=== PATIENT | male | born 1980 | race Caucasian/White ===

== ENCOUNTER 2018-04-23 18:56 | Inpatient (IN) | payer OTHER ==
[~2018-04-23] VITALS: Ht 177.8 cm; Wt 75.3 kg
[2018-04-23] MEDS ORDERED: ONDANSETRON 4 MG/2 ML (SDV) Z0FRAN ONE (18:57)
[2018-04-23] MEDS ORDERED: ONDANSETRON 4 MG/2 ML (SDV) Z0FRAN IVP ONE (19:00)
[2018-04-23] MEDS ORDERED: PROMETHAZINE INJ 25 MG/ML (PHENERGAN) AMP IVP ONE (19:00)
[2018-04-23 19:10] LABS: BASOPHILS % (AUTO) 0 % (0-10); EOSINOPHILS # (AUTO) 0.1 10^3/uL (0.0-0.3); EOSINOPHILS % (AUTO) 1 % (0-10); HEMATOCRIT 39 % (40-54); HEMOGLOBIN 14.5 G/DL (13.3-17.7); LYMPHOCYTES # (AUTO) 3.4 X 10^3 (1.0-4.0); LYMPHOCYTES % (AUTO) 18 % (12-44); MEAN CORPUSCULAR HEMOGLOBIN 33 PG (25-34); MEAN CORPUSCULAR HGB CONC 38 G/DL (32-36); MEAN CORPUSCULAR VOLUME 87 FL (80-99); MEAN PLATELET VOLUME 10.3 FL (7.4-10.4); MONOCYTES # (AUTO) 1.4 X 10^3 (0.0-1.0); MONOCYTES % (AUTO) 7 % (0-12); NEUTROPHILS # (AUTO) 14.2 X 10^3 (1.8-7.8); NEUTROPHILS % (AUTO) 74 % (42-75); PLATELET COUNT 396 10^3/uL (130-400); RED BLOOD COUNT 4.45 10^6/uL (4.35-5.85); RED CELL DISTRIBUTION WIDTH 13.2 % (10.0-14.5); WHITE BLOOD COUNT 19.1 10^3/uL (4.3-11.0)
[2018-04-23 19:29] LABS: ALANINE AMINOTRANSFERASE 31 U/L (0-55); ALBUMIN 4.7 GM/DL (3.2-4.5); ALKALINE PHOSPHATASE 107 U/L (40-136); BILIRUBIN,TOTAL 1.4 MG/DL (0.1-1.0); BUN/CREATININE RATIO 12; CALCIUM 9.1 MG/DL (8.5-10.1); CARBON DIOXIDE 20 MMOL/L (21-32); CHLORIDE 106 MMOL/L (98-107); CREATININE SERUM 1.21 MG/DL (0.60-1.30); GFR ESTIMATED > 60; GLUCOSE 134 MG/DL (70-105); POTASSIUM 3.5 MMOL/L (3.6-5.0); SODIUM 139 MMOL/L (135-145); TOTAL PROTEIN 7.1 GM/DL (6.4-8.2)
[2018-04-23 19:35] LABS: INR 1.1 (0.8-1.4); PARTIAL THROMBOPLASTIN TIME 26 SEC (24-35); PROTHROMBIN TIME PATIENT 14.1 SEC (12.2-14.7)
--- NOTE | 2018-04-23 19:35 | Diagnostic Imaging Report ---
INDICATION: Stroke protocol, prior lung transplant. COMPARISON: None available. TECHNIQUE: Single frontal radiograph of the chest dated April 23, 2018. FINDINGS: Port-A-Cath is present with the hub overlying the left chest with the distal tip overlying the cavoatrial junction. The cardiac silhouette is within normal limits. Central pulmonary vascular congestion is present. Mild perihilar opacities are noted. 0.9 cm ovoid nodular density is seen overlying the left costophrenic angle. The lungs otherwise appear clear. No significant pleural effusion. No pneumothorax. No acute osseous abnormality. IMPRESSION: 1. Mild central pulmonary vascular congestion with associated perihilar edema and/or pneumonitis. 2. 0.9 cm nodular density overlying the left costophrenic angle. This may relate to calcified granuloma or be external to the lungs. However, pulmonary nodule should be considered. Recommend comparison to prior imaging, if available. If no prior imaging is available, a CT of the chest would be recommended for further evaluation. Dictated by: Dictated on workstation # [id number]
[2018-04-23 19:38] LABS: FIBRIN DEGRADATION PRODUCTS < 0.27 UG/ML (0.00-0.49)
--- NOTE | 2018-04-23 19:41 | Diagnostic Imaging Report ---
PROCEDURE: CT angiography of the head and CT angiography of the neck with and without contrast. TECHNIQUE: Contiguous noncontrast images were obtained from the skull base through the vertex. After intravenous contrast administration, helical CT angiography of the neck was performed. Source data was reformatted into multiple 2D MIP projections. Delayed post contrast acquisition was also obtained. INDICATION: Nystagmus. COMPARISON: None available. FINDINGS: Noncontrast head: No hyperdense hemorrhage or space-occupying mass. No hydrocephalus or midline shift. No evidence of acute or subacute territorial infarct by CT. Basilar cisterns remain patent. No acute calvarial abnormality. There is chronic complete opacification of the bilateral ethmoid and maxillary sinuses which are small, indicative of these being chronic in nature. There is also opacification of the nasal cavities. CTA neck: Three-vessel branching pattern of the aortic arch. The bilateral common carotid arteries are widely patent. The cervical portions of the bilateral internal carotid arteries are widely patent. No stenosis of the proximal internal carotid arteries per NASCET criteria. Bilateral vertebral arteries are patent throughout the neck. No cervical lymphadenopathy. Lung apices are clear. CTA head: Distal internal carotid arteries are widely patent. The M1 and M2 divisions of the middle cerebral arteries are patent. M3 and M4 divisions are symmetric in size and number. Anterior cerebral arteries are widely patent. No saccular aneurysm within the anterior circulation. The basilar artery is widely patent and there is no aneurysm at its tip. The posterior cerebral arteries are patent centrally. Posterior communicating arteries are also patent bilaterally. IMPRESSION: 1. Noncontrast imaging is negative for large territorial infarct or intracranial hemorrhage. 2. No arterial occlusion or stenosis in the neck or head. 3. Chronic paranasal sinus disease with involvement of the nasal cavity. Sinonasal polyposis could give this appearance or chronic sinusitis. Dictated by: Dictated on workstation # [id number]
[2018-04-23 19:55] LABS: BAND NEUTROPHILS 0 %; BASOPHILS % (MANUAL) 0 %; EOSINOPHILS % (MANUAL) 1 %; LYMPHOCYTES % (MANUAL) 20 %; MONOCYTES % (MANUAL) 2 %; NEUTROPHILS % (MANUAL) 77 %; RBC MORPH NORMAL
[2018-04-23 20:21] LABS: BILIRUBIN,URINE NEGATIVE (NEGATIVE); CLARITY,URINE CLEAR; COLOR,URINE YELLOW; GLUCOSE, URINE (UA) NEGATIVE (NEGATIVE); KETONES,URINE NEGATIVE (NEGATIVE); LEUKOCYTE ESTERASE ,URINE NEGATIVE (NEGATIVE); NITRITE,URINE NEGATIVE (NEGATIVE); PH,URINE 6 (5-9); PROTEIN,URINE NEGATIVE (NEGATIVE); UROBILINOGEN,URINE NORMAL (NORMAL)
[2018-04-23 20:35] LABS: BACTERIA,URINE NEGATIVE /HPF; WBC,URINE RARE /HPF
--- NOTE | 2018-04-23 20:51 | ED Neurological Problem ---
General Chief Complaint: Neuro-Stroke Like Symptoms Stated Complaint: DIZZY,NAUSEA Nursing Triage Note: Pt assisted into ED by this RN and Viridiana CULP from car via wheelchair. 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 Pt dizzy, nauseous, and diaphoretic upon arrival to ED. Pt unable to stand without assistance and reports he is unable to open eyes due to dizziness. Pt actively vomiting while transporting to ED room. Pt reports hx cystic fibrosis and bilat lung transplant previously. LKWT 1730. Nursing Sepsis Screen: No Definite Risk Source: patient Exam Limitations: no limitations History of Present Illness Date Seen by Provider: Apr 23, 2018 Time Seen by Provider: 20:10 Initial Comments This 37-year-old gentleman presents to emergency room with sudden onset of severe vertigo with accompanying nausea and vomiting. He has persistent nystagmus as well. Last known well time was approximately 17:10. Patient had one previous episode similar but brief with lesser intensity a few weeks ago. He has a history of cystic fibrosis and bilateral lung transplant. He denies any acute illness of fever, URI symptoms, cough, etc. He denies headache or other neurologic deficits. Allergies and Home Medications Allergies Coded Allergies: No Known Drug Allergies (Unverified , 04/23/18) Patient Home Medication List Home Medication List Reviewed: Yes Review of Systems Review of Systems Constitutional: no symptoms reported Eyes: See HPI Ears, Nose, Mouth, Throat: no symptoms reported Respiratory: no symptoms reported Cardiovascular: no symptoms reported Gastrointestinal: no symptoms reported Genitourinary: no symptoms reported Musculoskeletal: no symptoms reported Skin: no symptoms reported Psychiatric/Neurological: See HPI Endocrine: No Symptoms Reported Hematologic/Lymphatic: No Symptoms Reported Past [id number] Hx Past Med/Social Hx: Reviewed and Corrections made Patient Social History Alcohol Use: Denies Use Recreational Drug Use: No Smoking Status: Never a Smoker 2nd Hand Smoke Exposure: No Recent Foreign Travel: No Contact w/Someone Who Travel: No Recent Infectious Disease Expo: No Recent Hopitalizations: No Physical Abuse: No Sexual Abuse: No Mistreated: No Fear: No Seasonal Allergies Seasonal Allergies: Yes Past Medical History Surgeries: Yes (Double lung transplant, MX: 8-10 sinus polypectomy, LAnkle repair ) Respiratory: Yes (CYSTIC FIBROSIS) Cardiac: No Neurological: Yes Neuropathy Genitourinary: No Gastrointestinal: No Endocrine: No HEENT: No Cancer: No Psychosocial: No Physical Exam Vital Signs Vital Signs - First Documented 04/23/18 18:56 Pulse 82 Resp 18 B/P (MAP) 142/95 (111) Pulse Ox 96 O2 Delivery Room Air Capillary Refill : Less Than 3 Seconds Height, Weight, BMI Height: 5'7.00" Weight: 170lbs. oz. 77.931385tv; BMI Method:Estimated General Appearance: WD/WN, moderate distress HEENT: PERRL/EOMI, normal ENT inspection, TMs normal, pharynx normal, other ( profound nystagmus even with eyes closed and at rest) Neck: normal inspection Respiratory: lungs clear, normal breath sounds, no respiratory distress, no accessory muscle use Cardiovascular: regular rate, rhythm, no edema, no murmur Peripheral Pulses: 0 Carotid (R), 0 Carotid (L), 0 Femoral (R), 0 Femoral (L), 0 Dorsalis Pedis (R), 0 Left Dors-Pedis (L), 0 Radial Pulses (R), 0 Radial Pulses (L) Gastrointestinal: normal bowel sounds, non tender, soft Extremities: normal inspection, no pedal edema Neurologic/Psychiatric: spray unit feeder II-XII nml as tested, no motor/sensory deficits, alert, normal mood/affect, oriented x 3, other (profound horizontal nystagmus) Crainal Nerves: normal hearing, normal speech, PERRL Coordination/Gait: normal finger to nose Motor/Sensory: no motor deficit, no sensory deficit Skin: normal color, warm/dry Stroke Onset of Symptoms Date of Onset of Symptoms: Apr 23, 2018 NIH Stroke Scale Assessment Select: Initial Level of Consciousness: 0=Alert (0), Level of Consciousness- Questions: 0=Answers both month/age (0), LOC Commands: 0=Performs both tasks (0) , Visual Yap: 0=No visual loss (0), Facial Movement (Facial Paresis): 0= Normal symmetrical mnt (0), Motor Function-Arms Right: 0=No drift (0), Motor Function-Arms Left: 0=No drift (0), Motor Function-Legs Right: 0=No drift (0), Motor Function-Legs Left: 0=No drift (0), Limb Ataxia: 0=Absent (0), Sensory: 0= Normal:no loss (0), Best Language: 0=No aphasia (0), Dysarthria: 0=Normal (0), Extinction & Inattention: 0=No abnormality (0), Total: 0 Stroke Thrombolytic Exclusion Age 18 or Over: Yes Intracranial Neoplasm/Aneurysm: No Progress/Results/Core Measures Results/Orders Lab Results Laboratory Tests Test 04/23/18 19:00 04/23/18 19:02 04/23/18 20:16 Range/Units White Blood Count 19.1 H 4.3-11.0 10^3/uL Red Blood Count 4.45 4.35-5.85 10^6/uL Hemoglobin 14.5 13.3-17.7 G/DL Hematocrit 39 L 40-54 % Mean Corpuscular Volume 87 80-99 FL Mean Corpuscular Hemoglobin 33 25-34 PG Mean Corpuscular Hemoglobin Concent 38 H 32-36 G/DL Red Cell Distribution Width 13.2 10.0-14.5 % Platelet Count 396 130-400 10^3/uL Mean Platelet Volume 10.3 7.4-10.4 FL Neutrophils (%) (Auto) 74 42-75 % Lymphocytes (%) (Auto) 18 12-44 % Monocytes (%) (Auto) 7 0-12 % Eosinophils (%) (Auto) 1 0-10 % Basophils (%) (Auto) 0 0-10 % Neutrophils # (Auto) 14.2 H 1.8-7.8 X 10^3 Lymphocytes # (Auto) 3.4 1.0-4.0 X 10^3 Monocytes # (Auto) 1.4 H 0.0-1.0 X 10^3 Eosinophils # (Auto) 0.1 0.0-0.3 10^3/uL Basophils # (Auto) 0.0 0.0-0.1 10^3/uL Neutrophils % (Manual) 77 % Lymphocytes % (Manual) 20 % Monocytes % (Manual) 2 % Eosinophils % (Manual) 1 % Basophils % (Manual) 0 % Band Neutrophils 0 % Blood Morphology Comment NORMAL Prothrombin Time 14.1 12.2-14.7 SEC INR Comment 1.1 0.8-1.4 Activated Partial Thromboplast Time 26 24-35 SEC D-Dimer < 0.27 0.00-0.49 UG/ML Sodium Level 139 135-145 MMOL/L Potassium Level 3.5 L 3.6-5.0 MMOL/L Chloride Level 106 98-107 MMOL/L Carbon Dioxide Level 20 L 21-32 MMOL/L Anion Gap 13 5-14 MMOL/L Blood Urea Nitrogen 15 7-18 MG/DL Creatinine 1.21 0.60-1.30 MG/DL Estimat Glomerular Filtration Rate > 60 BUN/Creatinine Ratio 12 Glucose Level 134 H 70-105 MG/DL Calcium Level 9.1 8.5-10.1 MG/DL Corrected Calcium 8.5-10.1 MG/DL Total Bilirubin 1.4 H 0.1-1.0 MG/DL Aspartate Amino Transf (AST/SGOT) 27 5-34 U/L Alanine Aminotransferase (ALT/SGPT) 31 0-55 U/L Alkaline Phosphatase 107 40-136 U/L Troponin I < 0.30 <0.30 NG/ML C-Reactive Protein High Sensitivity 0.07 0.00-0.50 MG/DL Total Protein 7.1 6.4-8.2 GM/DL Albumin 4.7 H 3.2-4.5 GM/DL Glucometer 137 H 70-110 MG/DL Urine Color YELLOW Urine Clarity CLEAR Urine pH 6 5-9 Urine Specific Adin 1.010 L 1.016-1.022 Urine Protein NEGATIVE NEGATIVE Urine Glucose (UA) NEGATIVE NEGATIVE Urine Ketones NEGATIVE NEGATIVE Urine Nitrite NEGATIVE NEGATIVE Urine Bilirubin NEGATIVE NEGATIVE Urine Urobilinogen NORMAL NORMAL MG/DL Urine Leukocyte Esterase NEGATIVE NEGATIVE Urine RBC (Auto) NEGATIVE NEGATIVE Urine RBC NONE /HPF Urine WBC RARE /HPF Urine Crystals NONE /LPF Urine Bacteria NEGATIVE /HPF Urine Casts NONE /LPF Urine Mucus NEGATIVE /LPF Urine Culture Indicated NO My Orders Orders - CABRERA WATSON MD Ondansetron Injection (Zofran Injectio (04/23/18 19:00) Promethazine Injection (Phenergan Injec (04/23/18 19:00) Cbc With Automated Diff (04/23/18:) Protime With Inr (04/23/18:) Partial Thromboplastin Time (04/23/18 19:) Comprehensive Metabolic Panel (04/23/18 19:) Fibrin Degradation Products (04/23/18:) Troponin I (04/23/18:) Ua Culture If Indicated (04/23/18:) Chest 1 View, Ap/Pa Only (04/23/18:) Ekg Tracing (04/23/18:) Accucheck Stat ONCE (04/23/18:) Saline Lock/Iv-Start (04/23/18:) Saline Lock/Iv-Start (04/23/18:) Vital Signs Stroke Patient Q15M (04/23/18:) O2 (04/23/18:) Intake & Output 06,14,22 (04/23/18:) Monitor-Rhythm Ecg Trace Only (04/23/18:) Dysphagia Screening Tool (04/23/18:) Post Thrombolytic Adminstratio (04/23/18:) Lipid Panel (04/24/18 06:00) Ct Angio Head/Neck (04/23/18:) Manual Differential (04/23/18 19:) Hs C Reactive Protein (04/23/18 19:44) Medications Given in ED Current Medications Medications Dose Ordered Sig/Josh Route Start Time Stop Time Status Last Admin Dose Admin Ondansetron HCl 8 mg ONCE ONCE IVP 04/23/18 19:00 04/23/18 19:02 DC 04/23/18 19:05 8 MG Promethazine HCl 25 mg ONCE ONCE IVP 04/23/18 19:00 04/23/18 19:02 DC 04/23/18 19:10 25 MG Vital Signs/I&O 04/23/18 18:56 Pulse 82 Resp 18 B/P (MAP) 142/95 (111) Pulse Ox 96 O2 Delivery Room Air Blood Pressure Mean: 111 FSBG Bedside Testing Finger Stick Blood Glucose: 137 Blood Glucose Action Taken: dr notified Progress Progress Note #1: Progress Note 19:30 - Stroke activation was paged. Patient was taken to CT for angiogram of the head and neck. Case was discussed with Dr. Hoffmann, stroke neurologist at [facility]. He advises against TPA for the time being until CT angiogram report is known. Patient was treated with Zofran and Phenergan. This did calm the nausea and vomiting but no nystagmus persisted. 19:57 - CT imaging revealed no evidence for hemorrhage or vascular occlusion. Case was again discussed with Dr. Hoffmann. He recommended discussing TPA with the patient but his opinion is that the benefits do not outweigh the risks in this case. He did advise treating for labyrinthitis and admitting for observation with MRI in the morning. Progress Note #2: Time: 19:[address] angiogram was negative. There was some evidence of sinusitis as an incidental finding. Case was again discussed with Dr. Hoffmann. He advised against TPA. He recommended treating for labyrinthitis, admitting, and obtaining an MRI in the morning. TPA was discussed with patient. Risks and benefits of TPA were reviewed. Progress Note #3: Time: 20:10 Progress Note TPA was discussed with patient. He was informed it was not recommended per the stroke neurologist but was an option. Patient declines TPA. Nystagmus is nearly resolved at this time. Plan according to discussion with Dr. Hoffmann was discussed with the patient who is agreeable to admission. Imaging was clotted to [facility] for his review. Initial ECG Impression Date: Apr 23, 2018 Initial ECG Impression Time: 19:30 Initial ECG Rate: 72 Initial ECG Rhythm: Normal Sinus Initial ECG Intervals: Normal Initial ECG Impression: Normal Diagnostic Imaging Diagonstic Imaging: CT Plain Films/CT/US/NM/MRI: other (angiogram head and neck) Comments CT angiogram head and neck viewed by me and report reviewed. See report below: NAME: TIERNEY SRINIVASAN [facility] REC#: [id number] PT STATUS: REG ER : 1980 PHYSICIAN: CABRERA WATSON MD ADMIT DATE: 04/23/18/ER Signed Date of Exam: 04/23/18 CT ANGIO HEAD/NECK PROCEDURE: CT angiography of the head and CT angiography of the neck with and without contrast. TECHNIQUE: Contiguous noncontrast images were obtained from the skull base through the vertex. After intravenous contrast administration, helical CT angiography of the neck was performed. Source data was reformatted into multiple 2D MIP projections. Delayed post contrast acquisition was also obtained. INDICATION: Nystagmus. COMPARISON: None available. FINDINGS: Noncontrast head: No hyperdense hemorrhage or space-occupying mass. No hydrocephalus or midline shift. No evidence of acute or subacute territorial infarct by CT. Basilar cisterns remain patent. No acute calvarial abnormality. There is chronic complete opacification of the bilateral ethmoid and maxillary sinuses which are small, indicative of these being chronic in nature. There is also opacification of the nasal cavities. CTA neck: Three-vessel branching pattern of the aortic arch. The bilateral common carotid arteries are widely patent. The cervical portions of the bilateral internal carotid arteries are widely patent. No stenosis of the proximal internal carotid arteries per NASCET criteria. Bilateral vertebral arteries are patent throughout the neck. No cervical lymphadenopathy. Lung apices are clear. CTA head: Distal internal carotid arteries are widely patent. The M1 and M2 divisions of the middle cerebral arteries are patent. M3 and M4 divisions are symmetric in size and number. Anterior cerebral arteries are widely patent. No saccular aneurysm within the anterior circulation. The basilar artery is widely patent and there is no aneurysm at its tip. The posterior cerebral arteries are patent centrally. Posterior communicating arteries are also patent bilaterally. IMPRESSION: 1. Noncontrast imaging is negative for large territorial infarct or intracranial hemorrhage. 2. No arterial occlusion or stenosis in the neck or head. 3. Chronic paranasal sinus disease with involvement of the nasal cavity. Sinonasal polyposis could give this appearance or chronic sinusitis. Dictated by: Dictated on workstation # [id number] Dict: 04/23/181928 Trans: 04/23/181945 Interpreted by: LUCY BRUCE MD Electronically signed by: LUCY BRUCE MD 04/23/181945 Diagonstic Imaging: Xray Plain Films/CT/US/NM/MRI: chest Comments Chest x-ray viewed by me and report reviewed. See report below: NAME: TIERNEY SRINIVASAN Courtney [facility] REC#: [id number] PT STATUS: REG ER : 1980 PHYSICIAN: CABRERA WATSON MD ADMIT DATE: 04/23/18/ER Signed Date of Exam: 04/23/18 CHEST 1 VIEW, AP/PA ONLY INDICATION: Stroke protocol, prior lung transplant. COMPARISON: None available. TECHNIQUE: Single frontal radiograph of the chest dated April 23, 2018. FINDINGS: Port-A-Cath is present with the hub overlying the left chest with the distal tip overlying the cavoatrial junction. The cardiac silhouette is within normal limits. Central pulmonary vascular congestion is present. Mild perihilar opacities are noted. 0.9 cm ovoid nodular density is seen overlying the left costophrenic angle. The lungs otherwise appear clear. No significant pleural effusion. No pneumothorax. No acute osseous abnormality. IMPRESSION: 1. Mild central pulmonary vascular congestion with associated perihilar edema and/or pneumonitis. 2. 0.9 cm nodular density overlying the left costophrenic angle. This may relate to calcified granuloma or be external to the lungs. However, pulmonary nodule should be considered. Recommend comparison to prior imaging, if available. If no prior imaging is available, a CT of the chest would be recommended for further evaluation. Dictated by: Dictated on workstation # [id number] Dict: 04/23/181926 Trans: 04/23/181945 Interpreted by: JAZZY LACKEY MD Electronically signed by: JAZZY LACKEY MD 04/23/181945 Departure Communication (Admissions) Time/Spoke to Admitting Phy: 20:40 Dr. Daniels Impression Primary Impression: Vertigo Additional Impressions: Nystagmus Sinusitis Qualified Codes: J32.9 - Chronic sinusitis, unspecified Leukocytosis Qualified Codes: D72.829 - Elevated white blood cell count, unspecified Nausea and vomiting Qualified Codes: R11.2 - Nausea with vomiting, unspecified Disposition: 09 ADMITTED INPATIENT Condition: Improved Admissions Decision to Admit Reason: Admit from ER (General) Decision to Admit/Date: Apr 23, 2018 Time/Decision to Admit Time: 19:25 CABRERA WATSON MD Apr 23, 2018 20:51
[2018-04-23 22:13] VITALS: BP 146/94
[2018-04-23] MEDS ORDERED: NS IV 1000 ML 1,000 ML ONE (22:38)
[2018-04-23] MEDS: NS IV 1000 ML 1,000 ML IV SCH (22:49)
[2018-04-23] MEDS: predniSONE 20 MG TAB PO SCH (23:03)
[2018-04-23] MEDS: cefTRIAXone 1 GM/NS 50 ML IVPB IV SCH ×2 (23:06)
[2018-04-23 23:45] VITALS: BP 127/62
[2018-04-24] VITALS (8 sets, daily range): BP systolic 116–134; BP diastolic 59–75
[2018-04-24] MEDS: ONDANSETRON 4 MG/2 ML (SDV) Z0FRAN IV PRN ×4 (03:55→20:46)
[2018-04-24] MEDS: PROMETHAZINE INJ 25 MG/ML (PHENERGAN) AMP IV PRN ×2 (05:14→15:17)
[2018-04-24] MEDS: NS IV 1000 ML 1,000 ML IV SCH ×3 (05:17→20:29)
[2018-04-24 06:18] LABS: BASOPHILS % (AUTO) 0 % (0-10); EOSINOPHILS # (AUTO) 0.1 10^3/uL (0.0-0.3); EOSINOPHILS % (AUTO) 2 % (0-10); HEMATOCRIT 35 % (40-54); HEMOGLOBIN 12.8 G/DL (13.3-17.7); LYMPHOCYTES # (AUTO) 0.9 X 10^3 (1.0-4.0); LYMPHOCYTES % (AUTO) 13 % (12-44); MEAN CORPUSCULAR HEMOGLOBIN 32 PG (25-34); MEAN CORPUSCULAR HGB CONC 37 G/DL (32-36); MEAN CORPUSCULAR VOLUME 87 FL (80-99); MEAN PLATELET VOLUME 10.2 FL (7.4-10.4); MONOCYTES # (AUTO) 0.5 X 10^3 (0.0-1.0); MONOCYTES % (AUTO) 7 % (0-12); NEUTROPHILS % (AUTO) 79 % (42-75); PLATELET COUNT 229 10^3/uL (130-400); RED BLOOD COUNT 4.02 10^6/uL (4.35-5.85); RED CELL DISTRIBUTION WIDTH 13.2 % (10.0-14.5); WHITE BLOOD COUNT 7.5 10^3/uL (4.3-11.0)
[2018-04-24] MEDS ORDERED: URSO300C3 PO (06:32)
[2018-04-24] MEDS ORDERED: PRED5TAB PO (06:32)
[2018-04-24] MEDS ORDERED: GABA600T2 PO ×2 (06:32→09:49)
[2018-04-24 06:37] LABS: BUN/CREATININE RATIO 13; CALCIUM 8.4 MG/DL (8.5-10.1); CARBON DIOXIDE 21 MMOL/L (21-32); CHLORIDE 106 MMOL/L (98-107); CHOLESTEROL 106 MG/DL (< 200); CREATININE SERUM 1.06 MG/DL (0.60-1.30); GFR ESTIMATED > 60; GLUCOSE 144 MG/DL (70-105); HDL CHOLESTEROL 30 MG/DL (40-60); POTASSIUM 3.6 MMOL/L (3.6-5.0); SODIUM 137 MMOL/L (135-145); TRIGLYCERIDES 86 MG/DL (<150); VLDL CHOLESTEROL 17 MG/DL (5-40)
[2018-04-24] MEDS ORDERED: FLU QUADRIvalent (5+ YOA) 2018-2019 (AFLURIA) 0.5 ML IM ONE (07:15)
--- NOTE | 2018-04-24 09:07 | Diagnostic Imaging Report ---
PROCEDURE: MR imaging of the brain and internal auditory canals without contrast. TECHNIQUE: Multiplanar, multisequence MR imaging of the brain was performed without contrast. Dedicated sequence of the internal auditory canals was also obtained and provided. DATE: April 24, 2018. COMPARISON: CT angiography head and neck April 23, 2018. HISTORY: 37-year-old male, vertigo, nystagmus. Dyspnea and nausea. FINDINGS: There is no restricted diffusion. There are no areas of abnormal intracranial susceptibility. The ventricles and CSF spaces are normal in size and configuration for patient age. There is no abnormal extra axial fluid collection. There is no acute intracranial hemorrhage. There is no mass effect or midline shift. There are small foci of T2 and FLAIR hyperintense signal in the bilateral frontal lobe subcortical white matter perhaps best illustrated on axial FLAIR sequence image 20 and adjacent sequential images. There are no additional areas of abnormal intracranial signal. The visualized portions of the fifth, seventh, and eighth cranial nerves are unremarkable in appearance. The middle ears appear unremarkable in appearance. There is no identified vascular loop entering within either internal auditory canal. There is extensive nonspecific paranasal opacification. The mastoid air cells are well aerated bilaterally. IMPRESSION: 1. No evidence of acute infarct. 2. Several nonspecific foci of T2 and FLAIR hyperintense signal in the bilateral frontal lobe subcortical white matter. Differential diagnostic considerations would include vasculitis, early changes of chronic small vessel ischemic disease, demyelinating etiology, and less likely atypical infection. These do not demonstrate diffusion restriction to specifically suggest active demyelinating lesion. 3. Nonspecific extensive paranasal sinus opacification. 4. Unremarkable appearance of the internal auditory canals. Dictated by: Dictated on workstation # [id number]
[2018-04-24] MEDS ORDERED: SULF1TAB35 PO (09:38)
[2018-04-24] MEDS ORDERED: CALC600T12 PO (09:38)
[2018-04-24] MEDS ORDERED: LIPA1CAP4 PO (09:38)
[2018-04-24] MEDS ORDERED: ACYC200C PO (09:38)
[2018-04-24] MEDS ORDERED: PYRI100T2 PO (09:38)
[2018-04-24] MEDS ORDERED: PRED10TA22 PO (09:38)
[2018-04-24] MEDS ORDERED: CYAN10006 PO (09:38)
[2018-04-24] MEDS ORDERED: MULT-406 PO (09:38)
[2018-04-24] MEDS ORDERED: PRD10T PO (09:42)
[2018-04-24] MEDS ORDERED: TACR1CAP8 PO (09:42)
[2018-04-24] MEDS ORDERED: MYCO500T34 PO (09:42)
[2018-04-24] MEDS: MECLIZINE 25 MG (ANTIVERT) TAB PO PRN (11:46)
[2018-04-24] MEDS ORDERED: PATIENT MAY USE OWN MEDS, ALL MC SCH (12:00)
[2018-04-24] MEDS ORDERED: SCOPOLAMINE 1.5 MG (TRANSDERM-SCOP) PATCH TOP SCH (12:00)
--- NOTE | 2018-04-24 12:01 | History & Physical-Hospitalist ---
History of Present Illness HPI/Chief Complaint Pt is a 37yoCM with a PMH of CF s/p bilateral lung transplant in 2008 who presented to the ER with CC of acute onset dizziness, nausea, and vomiting. He states that his symptoms started acutely at around 5pm yesterday when he was taking pictures. He describes his dizziness as "the room spinning like he just got off a [id number]." In the ER his symptoms improved with Zofran and Phenergan but they started again early this morning. He was activated as a code stroke and his CTA was negative for acute infarct or thrombus. His case was discussed with [facility] who felt he was not a candidate for TPA and his symptoms were more consistent with acute vestibular neuritis and he was admitted for observation and MRI. MRI this morning is negative for acute infarct though his symptoms are persistent and his nystagmus has returned. Source: patient, family Date Seen 04/24/18 Time Seen by a Provider: 11:52 Attending Physician Edmundo Daniels MD PCP No,Local Physician Referring Physician Date of Admission Apr 23, 2018 at 8:48 pm Home Medications & Allergies Home Medications Reviewed patient Home Medication Reconciliation performed by pharmacy medication reconciliations wheel alignment technician and/or nursing. Patients Allergies have been reviewed. Allergies Allergies Coded Allergies No Known Drug Allergies (Gofoqptstj24/8/18) Past Eubvwrk-Ecqixp-Ciqksj Hx Past Med/Social Hx: Reviewed Nursing Past Med/Soc Hx, Reviewed and Corrections made Patient Social History Alcohol Use: Denies Use Recreational Drug Use: No Smoking Status: Never a Smoker 2nd Hand Smoke Exposure: No Physical Abuse Screen: No Sexual Abuse: No Recent Foreign Travel: No Contact w/other who traveled: No Recent Hopitalizations: No Recent Infectious Disease Expo: No Seasonal Allergies Seasonal Allergies: No Past Medical History bilateral lung transplant cystic fibrosis Neurological: Neuropathy Family History Reviewed Nursing Family Hx Colitis 19 MOTHER Cystic fibrosis G8 BROTHER FH: rheumatoid arthritis 19 FATHER Review of Systems Constitutional: No chills; dizziness; No fever EENTM: No nose congestion, No throat pain Respiratory: No cough, No dyspnea on exertion, No short of breath Cardiovascular: No chest pain, No edema, No palpitations Gastrointestinal: No abdominal pain, No constipation, No diarrhea; nausea, vomiting Genitourinary: No dysuria, No frequency Musculoskeletal: No joint pain, No muscle pain Skin: No lesions, No rash Psychiatric/Neurological: Denies Headache, Denies Numbness, Denies Tingling Physical Exam Physical Exam Vital Signs Vital Signs - First Documented 04/23/18 04/23/18 18:56 22:05 Temp 98.6 Pulse 82 Resp 18 B/P (MAP) 142/95 (111) Pulse Ox 96 O2 Delivery Room Air Capillary Refill : Less Than 3 Seconds Height, Weight, BMI Height: 5'10.00" Weight: 166lbs. 0.0oz. [id number]; 23.8 BMI Method:Estimated General Appearance: No Apparent Distress, WD/WN HEENT: Moist Mucous Membranes, Other (persistent horizontal nystagmus bilaterally) Neck: Non Tender, Supple Respiratory: Lungs Clear, No Respiratory Distress Cardiovascular: Regular Rate, Rhythm, No Murmur Gastrointestinal: Normal Bowel Sounds, Non Tender, Soft Extremity: Normal Capillary Refill, No Calf Tenderness Neurologic/Psychiatric: Alert, Oriented x3, No Motor/Sensory Deficits, Normal Mood/Affect; No Aphasia, No Facial Droop, No Motor Weakness Skin: Normal Color, Warm/Dry Results Results/Procedures Labs Patient resulted labs reviewed. Imaging: Reviewed Imaging Films Assessment/Plan Admission Diagnosis Acute Vestibular Neuritis Admission Status: Inpatient Order (span 2 midnights) Reason for Inpatient Admission: Will likely take more than two days for stabilization Diagnosis/Problems Diagnosis/Problems (1) Acute vestibular neuritis Status: Acute Assessment & Plan: Concern for stroke on arrival but CT head and MRI head negative for acute infarct Likely acute vestibular neuritis Continue supportive care Advised nurse to given Meclizine to help with vertigo Added valium and scopolamine Qualifiers: Laterality: bilateral Qualified Codes: H81.23 - Vestibular neuronitis, bilateral (2) Cystic fibrosis Assessment & Plan: s/p bilateral lung transplant Will check Tacrolimus level Continue on Acyclovir and anti rejection medications (3) Leukocytosis Status: Acute Assessment & Plan: Now resolved Likely reactive from vomiting Qualifiers: Leukocytosis type: unspecified Qualified Codes: D72.829 - Elevated white blood cell count, unspecified Clinical Quality Measures DVT/VTE Risk/Contraindication: RFS Level Per Nursing on Admit: 0=No Risk/No VTE PPX Stroke: Date of last known well: Apr 23, 2018 MAURA MAYNARD MD Apr 24, 2018 12:01
[2018-04-24] MEDS: DIAZEPAM 2 MG (VALIUM) TAB PO PRN ×2 (12:49→17:39)
[2018-04-24] MEDS: ACYCLOVIR 400 MG TABLET (ZOVIRAX) PO SCH ×6 (14:59→20:56)
[2018-04-24] MEDS: predniSONE 20 MG TAB PO SCH (15:00)
[2018-04-24] MEDS: cefTRIAXone 1 GM/NS 50 ML IVPB IV SCH ×2 (23:21)
[2018-04-25] MEDS: NS IV 1000 ML 1,000 ML IV SCH ×4 (03:28→22:55)
[2018-04-25] MEDS: DIAZEPAM 2 MG (VALIUM) TAB PO PRN (03:30)
[2018-04-25 04:21] VITALS: BP 133/83
[2018-04-25] MEDS: predniSONE 20 MG TAB PO SCH (06:02)
[2018-04-25] MEDS: ACYCLOVIR 400 MG TABLET (ZOVIRAX) PO SCH ×2 (06:03→09:56)
[2018-04-25 06:21] LABS: BASOPHILS % (AUTO) 0 % (0-10); EOSINOPHILS # (AUTO) 0.3 10^3/uL (0.0-0.3); EOSINOPHILS % (AUTO) 4 % (0-10); HEMATOCRIT 33 % (40-54); HEMOGLOBIN 12.2 G/DL (13.3-17.7); LYMPHOCYTES # (AUTO) 1.5 X 10^3 (1.0-4.0); LYMPHOCYTES % (AUTO) 22 % (12-44); MEAN CORPUSCULAR HEMOGLOBIN 33 PG (25-34); MEAN CORPUSCULAR HGB CONC 37 G/DL (32-36); MEAN CORPUSCULAR VOLUME 90 FL (80-99); MEAN PLATELET VOLUME 10.1 FL (7.4-10.4); MONOCYTES # (AUTO) 0.5 X 10^3 (0.0-1.0); MONOCYTES % (AUTO) 8 % (0-12); NEUTROPHILS # (AUTO) 4.3 X 10^3 (1.8-7.8); NEUTROPHILS % (AUTO) 66 % (42-75); PLATELET COUNT 193 10^3/uL (130-400); RED BLOOD COUNT 3.68 10^6/uL (4.35-5.85); RED CELL DISTRIBUTION WIDTH 13.2 % (10.0-14.5); WHITE BLOOD COUNT 6.5 10^3/uL (4.3-11.0)
[2018-04-25 06:46] LABS: BUN/CREATININE RATIO 12; CALCIUM 8.2 MG/DL (8.5-10.1); CARBON DIOXIDE 21 MMOL/L (21-32); CHLORIDE 112 MMOL/L (98-107); CREATININE SERUM 1.02 MG/DL (0.60-1.30); GFR ESTIMATED > 60; GLUCOSE 103 MG/DL (70-105); POTASSIUM 4.1 MMOL/L (3.6-5.0); SODIUM 140 MMOL/L (135-145)
[2018-04-25 07:43] VITALS: BP 128/80
[2018-04-25] MEDS: ONDANSETRON 4 MG/2 ML (SDV) Z0FRAN IV PRN ×2 (10:31→21:15)
[2018-04-25] MEDS: MECLIZINE 25 MG (ANTIVERT) TAB PO PRN (10:34)
[2018-04-25 12:00] VITALS: BP 141/91
[2018-04-25] MEDS ORDERED: NON-FORMULARY MEDICATION 1 EA EA (Sulfamethoxazole/Trimethoprim (Bactrim Ds Tablet) 1 TAB) PO SCH (12:00)
[2018-04-25] MEDS ORDERED: LIPASE/AMYLASE/PROTEASE (PANCRELIPASE) 5,000 UNITS CAP PO PRN (12:30)
[2018-04-25] MEDS ORDERED: TRIM/SULFAMETH 160/800 (SEPTRA DS) TAB PO SCH (12:30)
[2018-04-25] MEDS: GABAPENTIN 300 MG (NEURONTIN) CAP PO SCH (14:59)
[2018-04-25] MEDS: MYCOPHENOLATE 500 MG PO SCH ×2 (15:00→21:16)
[2018-04-25] MEDS: PYRIDOXINE (VITAMIN B-6) 50 MG TABLET PO SCH (15:00)
--- NOTE | 2018-04-25 15:30 | Progress Note-Hospitalist ---
Progress Note Progress Notes/Assess & Plan Date Seen 04/25/18 Time Seen by Provider: 15:25 Assessment & Plan The patient reports that he is not yet normal but is performing better. He has been able to eat without severe nausea or vomiting. He reports that he is not stable yet to walk to the door or the bathroom without help. His medication has been adjusted to give meclizine on schedule. A scopolamine patch has been placed as well. He has not had to use anti-emetics for 12 hours or more. Physical exam: There is minimal horizontal nystagmus. He chooses to squint his left eye to lessen the nauseous sensation. Lungs are clear to auscultation. CV is regular. Impression: Nystagmus/vertigo. 2.cystic fibrosis post bilateral lung transplants. Plan: Discharge as soon as he is able to perform the activities of daily living. TOY HAWKINS MD Apr 25, 2018 15:30
[2018-04-25 17:15] VITALS: BP 133/71
[2018-04-25 19:25] VITALS: BP 144/86
[2018-04-25] MEDS: LIPASE/AMYLASE/PROTEASE (PANCRELIPASE) 5,000 UNITS CAP PO SCH (19:36)
[2018-04-25] MEDS ORDERED: GABAPENTIN 600 MG (NEURONTIN) TAB PO SCH (21:00)
[2018-04-25] MEDS ORDERED: NON-FORMULARY MEDICATION 1 EA EA (Ursodiol 300 MG) PO SCH (21:00)
[2018-04-25] MEDS: TACROLIMUS 1 MG (PROGRAF) CAP NON-FORMULARY PO SCH (21:14)
[2018-04-25] MEDS: ACYCLOVIR 200 MG CAP (ZOVIRAX) PO SCH (21:15)
[2018-04-25] MEDS: cefTRIAXone 1 GM/NS 50 ML IVPB IV SCH ×2 (22:55)
[2018-04-26 00:11] VITALS: BP 141/80
[2018-04-26 04:30] VITALS: BP 148/87
[2018-04-26] MEDS: NS IV 1000 ML 1,000 ML IV SCH (06:02)
[2018-04-26] MEDS ORDERED: CYANOCOBALAMIN 1,000 MCG (VITAMIN B-12) TABLET PO SCH (07:00)
[2018-04-26] MEDS ORDERED: MULTIVIT W/MINERALS TAB (THERAGRAN M) PO SCH (07:00)
[2018-04-26 08:00] VITALS: BP 129/81
[2018-04-26] MEDS: LIPASE/AMYLASE/PROTEASE (PANCRELIPASE) 5,000 UNITS CAP PO SCH (09:00)
[2018-04-26] MEDS: PYRIDOXINE (VITAMIN B-6) 50 MG TABLET PO SCH (09:00)
[2018-04-26] MEDS ORDERED: MECL-106 PO (09:37)
[2018-04-26] MEDS ORDERED: ONDA4TAB8 SL (09:37)
[2018-04-26] MEDS ORDERED: SCOP1PAT11 TOP (09:37)
[2018-04-26] MEDS ORDERED: CEPH-507 PO (09:37)
[2018-04-26] MEDS: TACROLIMUS 1 MG (PROGRAF) CAP NON-FORMULARY PO SCH (09:40)
[2018-04-26] MEDS: MYCOPHENOLATE 500 MG PO SCH (09:41)
[2018-04-26] MEDS: GABAPENTIN 300 MG (NEURONTIN) CAP PO SCH (09:41)
[2018-04-26] MEDS: ACYCLOVIR 200 MG CAP (ZOVIRAX) PO SCH (09:42)
[2018-04-26] MEDS: predniSONE 20 MG TAB PO SCH (09:42)
--- NOTE | 2018-04-26 10:03 | Discharge Summary-Hospitalist ---
Diagnosis/Chief Complaint Date of Admission Apr 23, 2018 at 8:48 pm Date of Discharge Discharge Date: Apr 26, 2018 Admission Diagnosis Acute Vestibular Neuritis Discharge Diagnosis (1) Acute vestibular neuritis Status: Acute Assessment & Plan: Concern for stroke on arrival but CT head and MRI head negative for acute infarct Likely acute vestibular neuritis Continue supportive care Advised nurse ot given Meclizine to help with vertigo Added valium as well (2) Cystic fibrosis Assessment & Plan: s/p bilateral lung transplant Will check Tacrolimus level Continue on Acyclovir (3) Leukocytosis Status: Acute Assessment & Plan: Now resolved Likely reactive from vomiting Discharge Summary Discharge Physical Exam Allergies: Coded Allergies: No Known Drug Allergies (Unverified , 04/23/18) Vitals & I&Os Vital Signs Date Time Temp Pulse Resp B/P (MAP) Pulse Ox O2 Delivery O2 Flow Rate FiO2 04/26/18 08:00 98.2 60 18 129/81 (97) 97 Room Air Hospital Course Labs (last 24 hrs) Patient resulted labs reviewed. Imaging: Reviewed Imaging Films Discharge Home Medications: Active Scripts Active Transderm-Scop (Scopolamine) 1 Each Patch.td72 1.5 Mg TOP Q72H Zofran Odt (Ondansetron) 4 Mg Tab.rapdis 4 Mg SL Q4H PRN Keflex (Cephalexin) 500 Mg Capsule 500 Mg PO BID Meclizine HCl 25 Mg Tablet 25 Mg PO TID PRN Reported Gabapentin 600 Mg Tablet 300 Mg PO DAILY TAKES 1/2 (600MG) TABLET Cellcept (Mycophenolate Mofetil) 500 Mg Tablet 1,000 Mg PO BID LAST FILLED 09-13-17 #120 Tacrolimus 1 Mg Capsule 3 Mg PO BID LAST FILLED #180 SEPTEMBER 2017 Prednisone 10 Mg Tab 5 Mg PO DAILY Acyclovir 200 Mg Capsule 200 Mg PO BID Creon 24,000 Units Capsule (Lipase/Protease/Amylase) 1 Each Capsule.dr 3-8 Cap PO UD TAKES 3-4 CAPSULES WITH SNACKS AND TAKES 6-8 CAPSULES WITH MEALS Bactrim Ds Tablet (Sulfamethoxazole/Trimethoprim) 1 Each Tablet 1 Tab PO MOWEFR Calcium (Calcium Carbonate) 600 Mg Tablet 600 Mg PO DAILY Vitamin B-6 (Pyridoxine HCl) 100 Mg Tablet 100 Mg PO DAILY Vitamin B-12 (Cyanocobalamin (Vitamin B-12)) 1,000 Mcg Tablet 1,000 Mcg PO DAILY Men's One Daily (Multivitamin with Minerals) 1 Each Tablet 1 Tab PO DAILY Ursodiol 300 Mg Capsule 300 Mg PO BID Gabapentin 600 Mg Tablet 600 Mg PO HS Instructions to patient/family Please see electronic discharge instructions given to patient. Clinical Quality Measures DVT/VTE Risk/Contraindication: RFS Level Per Nursing on Admit: 0=No Risk/No VTE PPX Stroke: Date of last known well: Apr 23, 2018 Problem Qualifiers (1) Acute vestibular neuritis: Laterality: bilateral Qualified Codes: H81.23 - Vestibular neuronitis, bilateral (2) Leukocytosis: Leukocytosis type: unspecified Qualified Codes: D72.829 - Elevated white blood cell count, unspecified MAURA MAYNARD MD Apr 26, 2018 10:03 am
--- NOTE | 2018-04-26 10:05 | Discharge Inst-Simple/Standard ---
Discharge Inst-Standard Patient Instructions/Follow Up Plan of Care/Instructions/FU: Please continue to take your medications as written. Please establish care with a primary car physician and follow up with your transplant doctor as scheduled. Activity as Tolerated: Yes Discharge Diet: No Restrictions Return to The Hospital For: Worsening dizziness, vomiting, slurred speech, fever, if you feel you are getting worse. Planned Outpatient Orders/Ref. Pneu Vac Indicated: Yes MAURA MAYNARD MD Apr 26, 2018 10:05 am
[2018-04-26] MEDS ORDERED: FLU QUADRIvalent (5+ YOA) 2018-2019 (AFLURIA) 0.5 ML IM ONE (10:19)
[2018-04-26 11:00] VITALS: BP 129/81
[2018-04-26] MEDS ORDERED: GABAPENTIN 300 MG (NEURONTIN) CAP PO SCH (12:00)
[2018-04-27] MEDS ORDERED: PATCH REMOVAL TP SCH (08:59)
== END 2018-04-26 11:00 | disposition home or self-care (01) | DRG 149 ==
LOC: ER 18:59 → 4TH 20:48
PROVIDERS: ADMIT Internal Medicine; ATTEND Internal Medicine
DX: H81.23 Vestibular neuronitis, bilateral (principal); E84.9 Cystic fibrosis, unspecified; Z94.2 Lung transplant status; R11.2 Nausea with vomiting, unspecified; J32.9 Chronic sinusitis, unspecified; G62.9 Polyneuropathy, unspecified; Z79.52 Long term (current) use of systemic steroids; Z23 Encounter for immunization
CPT/HCPCS: 36415; 70496; 70498; 70551; 71045; 80048; 80053; 80061; 80197; 81000; 82962; 84484; 85007; 85025; 85027; 85379; 85610; 85730; 86141; 90686; 93005; 93041; 96374; 96375